=== PATIENT | male | born 1990 | race Hispanic/Latino ===

== ENCOUNTER 2018-05-26 18:35 | Emergency (ER) | payer OTHER ==
[~2018-05-26] VITALS: Ht 170.2 cm; Wt 72.6 kg
[2018-05-26] MEDS ORDERED: IBUPROFEN 400 MG TABLET ONE (20:36)
[2018-05-26] MEDS ORDERED: ORPHENADRINE CITRATE 30 MG/ML ML ONE (20:50)
== END 2018-05-26 20:57 | disposition home or self-care (01) ==
LOC: EDH 18:35
DX: S16.1XXA Strain of muscle, fascia and tendon at neck level, initial encounter (principal); S76.011A Strain of muscle, fascia and tendon of right hip, initial encounter; V49.59XA Passenger injured in collision with other motor vehicles in traffic accident, initial encounter; Y93.89 Activity, other specified; Y92.89 Other specified places as the place of occurrence of the external cause; Y99.8 Other external cause status
CPT/HCPCS: 72040; 73502; 96372; 99284; J2360

== ENCOUNTER 2020-10-29 01:12 | Emergency (ER) | payer OTHER | END 2020-10-29 02:49 | disposition home or self-care (01) | LOC: EDH 01:12 | DX: S20.212A Contusion of left front wall of thorax, initial encounter (principal); Z72.0 Tobacco use; X58.XXXA Exposure to other specified factors, initial encounter; Y93.89 Activity, other specified; Y92.89 Other specified places as the place of occurrence of the external cause; Y99.8 Other external cause status | CPT/HCPCS: 71101 ==